=== PATIENT | female | born 1970 | race African-American/Black ===

== ENCOUNTER 2016-08-22 08:19 | Emergency (ER) | payer MEDICARE, MEDICAID ==
[~2016-08-22] VITALS: Ht 175.3 cm; Wt 124.0 kg
[~2016-08-22 08:19] MED LIST: ALBU6.7H INH; BACI500O9 TOPICAL; CARD240C6 PO; CLON0.2T PO; FURO1TAB93 PO; HUMA100I SQ; HYDR50TA94 PO; LEVEMIR SC; LOPE2 PO; LOSA50TA PO; MAGN400 PO; PULM90IN; XANA0.5T PO; ZOFR4TAB3 SL; ZOLP1TAB32 PO
[2016-08-22 08:20] VITALS: BP 254/120; PULSE 122; RESP 24; O2SAT 98
[2016-08-22 08:55] VITALS: BP 196/97; PULSE 98; RESP 20; O2SAT 99
[2016-08-22 08:56] VITALS: O2SAT 99
[2016-08-22 09:06] LABS: AUTOMATED NEUTROPHIL # 11.2 TH/MM3 (1.8-7.7); BASOPHIL % 0.3 % (0.0-2.0); EOSINOPHIL # 0.2 TH/MM3 (0-0.4); EOSINOPHIL % 1.2 % (0.0-4.0); HEMATOCRIT 36.1 % (35.0-46.0); LYMPH % 9.3 % (9.0-44.0); LYMPHOCYTE # 1.2 TH/MM3 (1.0-4.8); MEAN CELL VOLUME 63.4 FL (80.0-100.0); MEAN CORPUSCULAR HEMOGLOBIN 20.7 PG (27.0-34.0); MEAN CORPUSCULAR HGB CONC 32.6 % (32.0-36.0); NEUT % 85.2 % (16.0-70.0); PLATELET COUNT 410 TH/MM3 (150-450); RED CELL DISTRIBUTION WIDTH 16.7 % (11.6-17.2); WHITE BLOOD COUNT 13.1 TH/MM3 (4.0-11.0)
[2016-08-22 09:10] LABS: HEMO FLAGS AUTO DIFF
[2016-08-22 09:19] LABS: ANION GAP 10 MEQ/L (5-15); AST (GOT) 13 U/L (15-37); BICARBONATE 23.1 MEQ/L (21.0-32.0); BLOOD UREA NITROGEN 14 MG/DL (7-18); CHLORIDE 106 MEQ/L (98-107); GLOMERULAR FILTRATION RATE 86 ML/MIN (>89); POTASSIUM 3.5 MEQ/L (3.5-5.1); SODIUM (NA) 139 MEQ/L (136-145)
[2016-08-22 09:23] LABS: ALKALINE PHOSPHATASE 131 U/L (45-117); ALT (GPT) 25 U/L (10-53); TOTAL BILIRUBIN ADULT 0.2 MG/DL (0.2-1.0)
[2016-08-22 09:51] LABS: SCAN/DIFF AUTO DIFF CONFIRMED
--- NOTE | 2016-08-22 10:14 | PD ---
HPI Chief Complaint: Abdominal Pain Time Seen by Provider: 10:04 Travel History International Travel<30 days: No Contact w/Intl Traveler<30days: No Traveled to known affect area: No History of Present Illness HPI The patient is a 46-year-old Jessica female who presents emergency department for nausea, vomiting, diarrhea, and epigastric abdominal pain. The patient states she developed diarrhea last night which she describes as loose, watery, brown, without any visible blood. The patient states she had approximately 12 episodes of diarrhea. The patient then developed crampy epigastric abdominal pain with nausea and the dry heaves. The patient has a history of gastroparesis and states her symptoms with gastroparesis are very similar. The patient also notes a previous history of cholecystectomy. She denies any history pancreatitis. She denies any lower abdominal pain or known history of diverticulitis. The patient denies . The patient denies any dysuria, frequency, or urgency. The patient's symptoms are moderate, not alleviated with Reglan and Zofran at home, and there are no known exacerbating factors. However, she states that her grandson had nausea and vomiting several days ago with abdominal pain, however, did not have diarrhea. The patient's primary physician is Dr. Ray Chambers. [facility] Past Medical History Hx Anticoagulant Therapy: Yes (ASA) Arthritis: Yes Asthma: Yes Anxiety: Yes Depression: Yes Heart Rhythm Problems: No Cardiac Catheterization: No Cardiovascular Problems: Yes (HTN) High Cholesterol: Yes Congestive Heart Failure: No Cerebrovascular Accident: Yes (TIA) Coronary Artery Disease: Yes Diabetes: Yes Dialysis: Yes Diminished Hearing: No GERD: Yes Genitourinary: No Headaches: Yes Hypertension: Yes Immune Disorder: No Psychiatric: No Reproductive: No Respiratory: Yes (ASTHMA) Integumentary: Yes (hydrodenditis) Immunizations Current: Yes Migraines: No Myocardial Infarction: No Seizures: No Sickle Cell Disease: Yes (trait) Sleep Apnea: Yes (uses cpap) : 5 Para: 2 Miscarriage: 3 Past Surgical History Abdominal Surgery: No Body Medical Devices: HYDRODENDRITIS WITH LYMPH NODE DISSECTION Cardiac Surgery: No Section: Yes Cholecystectomy: Yes Coronary Artery Bypass Graft: No Ear Surgery: No Endocrine Surgery: No Eye Surgery: No Genitourinary Surgery: No Gynecologic Surgery: Yes (2 C SECTIONS) Hysterectomy: Yes Neurologic Surgery: No Oral Surgery: No Thoracic Surgery: No Other Surgery: Yes ( HYDRADENITIS) Social History Alcohol Use: Yes (OCC) Tobacco Use: No Substance Use: No Allergies-Medications (Allergen,Severity, Reaction): Coded Allergies: Cleocin (Verified Allergy, Severe, Hives, 08/22/16) Contrast Media (Verified Allergy, Severe, SHORTNESS OF BREATH, 08/22/16) Clindamycin (Verified Allergy, Intermediate, hives, 08/22/16) Augmentin (Verified Allergy, Mild, HIVES, 08/22/16) Diflucan (Verified Allergy, Mild, HIVES, 08/22/16) Levaquin (Verified Allergy, Mild, HIVES, 08/22/16) Percocet (Verified Allergy, Mild, Hallucinations, 08/22/16) Reported Meds & Prescriptions Reported Meds & Active Scripts Active Bacitracin Topical 500 Unit/Gm Oint 1 Applic TOPICAL DAILY Zofran ODT (Ondansetron HCl) 4 Mg Tab 4 Mg SL Q6HR PRN FOR NAUSEA/VOMITING Imodium2 Mg 2 Mg Cap 2 Mg PO Q6HR Zofran ODT (Ondansetron HCl) 4 Mg Tab 4 Mg SL Q6H PRN FOR NAUSEA/VOMITING Reported Pulmicort Flex90 Mcg 90 Mcg Inh DAILY Lasix (Furosemide) 40 Mg Tab 40 Mg PO BID Levemir (Insulin Detemir) Inj 100 SC BID Mag-Ox 400 (Magnesium Oxide) 400 Mg Tab 400 Mg PO DAILY Review of Systems Except as stated in HPI: all other systems reviewed are Neg General / Constitutional: No: Fever HENT: No: Lightheadedness Cardiovascular: No: Chest Pain or Discomfort Respiratory: No: Shortness of Breath Gastrointestinal: Positive: Nausea, Vomiting, Diarrhea, Abdominal Pain Genitourinary: No: Dysuria, Decreased Urinary Output Musculoskeletal: No: Myalgias Neurologic: No: Weakness Physical Exam Narrative GENERAL: Awake, alert, pleasant 46-year-old female who appears her stated age and is in no acute respiratory distress. SKIN: Warm and dry. HEAD: Atraumatic. Normocephalic. EYES: Pupils equal and round. No scleral icterus. No injection or drainage. ENT: No nasal bleeding or discharge. Mucous membranes pink and moist. NECK: Trachea midline. No JVD. CARDIOVASCULAR: Regular rate and rhythm. No murmur appreciated. Heart rate in the 90s. RESPIRATORY: No accessory muscle use. Clear to auscultation. Breath sounds equal bilaterally. GASTROINTESTINAL: Abdomen soft, obese, no rebound tenderness. No tenderness upon palpation of the left or right lower quadrant. Negative McBurney's. No guarding or rigidity noted. MUSCULOSKELETAL: No obvious deformities. No clubbing. No cyanosis. No edema. NEUROLOGICAL: Awake and alert. No obvious cranial nerve deficits. Motor grossly within normal limits. Normal speech. PSYCHIATRIC: Appropriate mood and affect; insight and judgment normal. Data Data Last Documented VS Vital Signs Date Time Temp Pulse Resp B/P Pulse Ox O2 Delivery O2 Flow Rate FiO2 08/22/16 08:56 99 Room Air 08/22/16 08:55 98 20 196/97 Orders Complete Blood Count With Diff (08/22/16 08:31) Comprehensive Metabolic Panel (08/22/16 08:31) Urinalysis - C+S If Indicated (08/22/16 08:31) Ed Urine Pregnancytest Poc (08/22/16 08:31) Iv Access Insert/Monitor (08/22/16 08:31) Oxygen Administration (08/22/16 08:31) Oximetry (08/22/16 08:31) Lipase (08/22/16 08:31) Sodium Chlor 0.9% 1000 Ml Inj (Ns 1000 M (08/22/16 10:15) Morphine Inj (Morphine Inj) (08/22/16 10:15) Prochlorperazine Inj (Compazine Inj) (08/22/16 10:15) Morphine Inj (Morphine Inj) (08/22/16 12:00) Ondansetron Inj (Zofran Inj) (08/22/16 12:00) Sodium Chloride 0.9% Flush (Ns Flush) (08/22/16 12:00) Al-Mag Hy-Si 40-40-4 Mg/Ml Liq (Mag-Al P (08/22/16 12:00) Lidocaine 2% Viscous (Xylocaine 2% Visco (08/22/16 12:00) Labs Laboratory Tests Test 08/22/16 08:44 White Blood Count 13.1 TH/MM3 Red Blood Count 5.70 MIL/MM3 Hemoglobin 11.8 GM/DL Hematocrit 36.1 % Mean Corpuscular Volume 63.4 FL Mean Corpuscular Hemoglobin 20.7 PG Mean Corpuscular Hemoglobin 32.6 % Concent Red Cell Distribution Width 16.7 % Platelet Count 410 TH/MM3 Mean Platelet Volume 7.2 FL Neutrophils (%) (Auto) 85.2 % Lymphocytes (%) (Auto) 9.3 % Monocytes (%) (Auto) 4.0 % Eosinophils (%) (Auto) 1.2 % Basophils (%) (Auto) 0.3 % Neutrophils # (Auto) 11.2 TH/MM3 Lymphocytes # (Auto) 1.2 TH/MM3 Monocytes # (Auto) 0.5 TH/MM3 Eosinophils # (Auto) 0.2 TH/MM3 Basophils # (Auto) 0.0 TH/MM3 CBC Comment AUTO DIFF Differential Comment AUTO DIFF CONFIRMED Sodium Level 139 MEQ/L Potassium Level 3.5 MEQ/L Chloride Level 106 MEQ/L Carbon Dioxide Level 23.1 MEQ/L Anion Gap 10 MEQ/L Blood Urea Nitrogen 14 MG/DL Creatinine 0.86 MG/DL Estimat Glomerular Filtration 86 ML/MIN Rate Random Glucose 208 MG/DL Calcium Level 8.8 MG/DL Total Bilirubin 0.2 MG/DL Aspartate Amino Transf 13 U/L (AST/SGOT) Alanine Aminotransferase 25 U/L (ALT/SGPT) Alkaline Phosphatase 131 U/L Total Protein 8.6 GM/DL Albumin 3.5 GM/DL Lipase 158 U/L [facility] Medical Decision Making Medical Screen Exam Complete: Yes Emergency Medical Condition: Yes Medical Record Reviewed: Yes Interpretation(s) Laboratory Tests Test 08/22/16 08:44 White Blood Count 13.1 TH/MM3 Red Blood Count 5.70 MIL/MM3 Hemoglobin 11.8 GM/DL Hematocrit 36.1 % Mean Corpuscular Volume 63.4 FL Mean Corpuscular Hemoglobin 20.7 PG Mean Corpuscular Hemoglobin 32.6 % Concent Red Cell Distribution Width 16.7 % Platelet Count 410 TH/MM3 Mean Platelet Volume 7.2 FL Neutrophils (%) (Auto) 85.2 % Lymphocytes (%) (Auto) 9.3 % Monocytes (%) (Auto) 4.0 % Eosinophils (%) (Auto) 1.2 % Basophils (%) (Auto) 0.3 % Neutrophils # (Auto) 11.2 TH/MM3 Lymphocytes # (Auto) 1.2 TH/MM3 Monocytes # (Auto) 0.5 TH/MM3 Eosinophils # (Auto) 0.2 TH/MM3 Basophils # (Auto) 0.0 TH/MM3 CBC Comment AUTO DIFF Differential Comment AUTO DIFF CONFIRMED Sodium Level 139 MEQ/L Potassium Level 3.5 MEQ/L Chloride Level 106 MEQ/L Carbon Dioxide Level 23.1 MEQ/L Anion Gap 10 MEQ/L Blood Urea Nitrogen 14 MG/DL Creatinine 0.86 MG/DL Estimat Glomerular Filtration 86 ML/MIN Rate Random Glucose 208 MG/DL Calcium Level 8.8 MG/DL Total Bilirubin 0.2 MG/DL Aspartate Amino Transf 13 U/L (AST/SGOT) Alanine Aminotransferase 25 U/L (ALT/SGPT) Alkaline Phosphatase 131 U/L Total Protein 8.6 GM/DL Albumin 3.5 GM/DL Lipase 158 U/L Differential Diagnosis Differential diagnosis includes gastritis, peptic ulcer disease, gastroenteritis , food poisoning, pancreatitis, gastroparesis, dehydration, pyelonephritis, . Narrative Course IV was established, labs were drawn and sent, and the patient was placed on cardiac telemetry monitoring and continuous pulse oximetry monitoring. The patient was administered morphine, Compazine, and IV fluids. Patient's LFTs and lipase are unremarkable. The patient was reevaluated, still had mild epigastric discomfort, requested a GI cocktail that she's had relief of her symptoms in the past with a GI cocktail. Therefore, GI cocktail was ordered with another dose of morphine and Zofran. The patient was reevaluated at 12:35 PM, her symptoms had resolved. The patient will be placed on Zantac twice a day and is advised to follow-up with her primary physician, Dr. Chambers, and gastroenterology as needed. Diagnosis Primary Impression: Gastritis Qualified Code: K29.70 - Gastritis, presence of bleeding unspecified, unspecified chronicity, unspecified gastritis type Additional Impression: Abdominal pain Qualified Code: R10.13 - Epigastric pain Patient Instructions: General Instructions Additional Instructions: Zantac as previously directed. Continue your your home medications as previously directed. Follow-up with your primary physician, Dr. Chambers. Follow-up with gastroenterology if symptoms persist. Med/Other Pt SpecificInfo: Prescription(s) given Disposition: 01 DISCHARGE HOME Condition: Stable Damion Dick MD Aug 22, 2016 10:14
[2016-08-22] MEDS ORDERED: PROCHLORPERAZINE INJ 10 MG/2 ML VIAL IVS ONE (10:15)
[2016-08-22] MEDS ORDERED: SODIUM CHLOR 0.9% 1000 ML INJ 1,000 ML IV ONE (10:15)
[2016-08-22] MEDS ORDERED: MORPHINE SULFATE 4 MG/ML INJ IV PUSH ONE ×2 (10:15→12:00)
[2016-08-22] MEDS ORDERED: LOSA50TA PO (10:18)
[2016-08-22] MEDS ORDERED: ZOFR4TAB PO (10:18)
[2016-08-22] MEDS ORDERED: ALBUAER3 INH (10:18)
[2016-08-22] MEDS ORDERED: ALPR.5 PO (10:18)
[2016-08-22] MEDS ORDERED: MELO7.5T4 PO (10:18)
[2016-08-22] MEDS ORDERED: MAGN1TAB14 PO (10:18)
[2016-08-22] MEDS ORDERED: DILT-64 PO (10:18)
[2016-08-22] MEDS ORDERED: HYDR50TA94 PO (10:18)
[2016-08-22] MEDS ORDERED: REGL5TAB PO (10:18)
[2016-08-22] MEDS ORDERED: HUMALOG SQ (10:18)
[2016-08-22] MEDS ORDERED: FURO1TAB60 PO (10:18)
[2016-08-22] MEDS ORDERED: MONT10TA2 PO (10:18)
[2016-08-22] MEDS ORDERED: HYDR200T3 PO (10:18)
[2016-08-22] MEDS ORDERED: LEVEMIR SQ (10:18)
[2016-08-22] MEDS ORDERED: AMBI10TA PO (10:18)
[2016-08-22] MEDS ORDERED: POTA-163 PO (10:18)
[2016-08-22] MEDS ORDERED: [UNRECOGNIZED DRUG - CODE] PO (10:18)
[2016-08-22] MEDS ORDERED: CLON0.2T PO (10:18)
[2016-08-22] MEDS ORDERED: RANI300C PO (10:18)
[2016-08-22] MEDS ORDERED: ONDANSETRON HCL 4 MG/2 ML VIAL IVP ONE (12:00)
[2016-08-22] MEDS ORDERED: ALUMINUM/MAGNESIUM/SIMETH 30 ML CUP PO ONE (12:00)
[2016-08-22] MEDS ORDERED: SODIUM CHLORIDE 0.9% FLUSH 5 ML FLUSH IVF PRN (12:00)
[2016-08-22] MEDS ORDERED: LIDOCAINE VISCOUS 2% SOLN 15 ML UDC PO ONE (12:00)
== END 2016-08-22 13:15 | disposition home or self-care (01) ==
LOC: NEPC 08:19
DX: I10 Essential (primary) hypertension (principal); I25.10 Atherosclerotic heart disease of native coronary artery without angina pectoris; Z99.2 Dependence on renal dialysis; E78.00 Pure hypercholesterolemia, unspecified; K29.70 Gastritis, unspecified, without bleeding
CPT/HCPCS: 80053; 83690; 85025; 96374; 96375; 96376; 99284; J0780; J2270; J2405; J7030

== ENCOUNTER 2017-06-20 10:14 | Inpatient (IN) | payer MEDICARE, MEDICAID ==
[~2017-06-20] VITALS: Ht 175.3 cm; Wt 131.3 kg
[2017-06-20] VITALS (11 sets, daily range): BP systolic 172–222; BP diastolic 82–102; PULSE 91–116; RESP 18–22; TEMP 99.2–101.5; O2SAT 95–98
[~2017-06-20 10:14] MED LIST changes: -ALBU6.7H INH; +ALBUAER3 INH; +ALPR.5 PO; +AMBI10TA PO; -BACI500O9 TOPICAL; -CARD240C6 PO; +DILT-64 PO; +FURO1TAB61 PO; -FURO1TAB93 PO; +GLIP5TAB8 PO; -HUMA100I SQ; +HUMALOG SQ; +HYDR200T3 PO; -LEVEMIR SC; +LEVEMIR SQ; -LOPE2 PO; +MAGN1TAB14 PO; -MAGN400 PO; +MEDI; +MELO7.5T4 PO; +MONT10TA2 PO; +POTA-163 PO; -PULM90IN; +RANI300C PO; +REGL5TAB PO; -XANA0.5T PO; +ZOFR4TAB PO; -ZOFR4TAB3 SL; -ZOLP1TAB32 PO; +[UNRECOGNIZED DRUG - CODE] PO
--- NOTE | 2017-06-20 10:23 | PD ---
HPI Chief Complaint: Respiratory Symptoms Time Seen by Provider: 10:23 Travel History International Travel<30 days: No Contact w/Intl Traveler<30days: No Traveled to known affect area: No History of Present Illness HPI 46-year-old female came to the emergency room with history of respiratory distress. Patient says that her daughter was sick last week but she recovered and the patient started getting sick with cough and progressive shortness of breath for past 3 days. She was also hypertensive at her primary care physician 's office. Her blood pressure was about 200 and blood sugar was 455. Her primary care physician sent her to the emergency room to be evaluated. Patient denies any chest pain. Patient says that she has been taking her medications like she supposed to. This morning when she checked her sugar and was little over 200. She took her Levemir only since she had need any breakfast. She says she has been feeling chills but did not take her temperature. Her temperature was 99.5 in triage. Patient was having difficulty talking because of tachypnea. She had 1-2 words per breath. [facility] Past Medical History Narrative Medical List of her past medical, surgical, social and family history is reviewed from the nursing note. Hx Anticoagulant Therapy: Yes (ASA) Arthritis: Yes Asthma: Yes Anxiety: Yes Depression: Yes Heart Rhythm Problems: No Cardiac Catheterization: No Cardiovascular Problems: Yes (HTN) High Cholesterol: Yes Congestive Heart Failure: No Cerebrovascular Accident: Yes (TIA) Coronary Artery Disease: Yes Diabetes: Yes Dialysis: Yes Diminished Hearing: No GERD: Yes Genitourinary: No Headaches: Yes Hypertension: Yes Immune Disorder: No Psychiatric: No Reproductive: No Respiratory: Yes (ASTHMA) Integumentary: Yes (hydrodenditis) Immunizations Current: Yes Migraines: No Myocardial Infarction: No Seizures: No Sickle Cell Disease: Yes (trait) Sleep Apnea: Yes (uses cpap) : 5 Para: 2 Miscarriage: 3 Past Surgical History Abdominal Surgery: No Body Medical Devices: HYDRODENDRITIS WITH LYMPH NODE DISSECTION Cardiac Surgery: No Section: Yes Cholecystectomy: Yes Coronary Artery Bypass Graft: No Ear Surgery: No Endocrine Surgery: No Eye Surgery: No Genitourinary Surgery: No Gynecologic Surgery: Yes Hysterectomy: Yes Neurologic Surgery: No Oral Surgery: No Thoracic Surgery: No Other Surgery: Yes ( HYDRADENITIS) Social History Alcohol Use: Yes (OCC) Tobacco Use: No Substance Use: No Allergies-Medications (Allergen,Severity, Reaction): Coded Allergies: diatrizoate meglumine (Unverified Allergy, Severe, SHORTNESS OF BREATH, ) gadobenic acid (Unverified Allergy, Severe, SHORTNESS OF BREATH, 06/20/17) gadodiamide (Unverified Allergy, Severe, SHORTNESS OF BREATH, 06/20/17) gadoteridol (Unverified Allergy, Severe, SHORTNESS OF BREATH, 06/20/17) iodixanol (Unverified Allergy, Severe, SHORTNESS OF BREATH, 06/20/17) iohexol (Unverified Allergy, Severe, SHORTNESS OF BREATH, 06/20/17) clindamycin (Unverified Allergy, Intermediate, hives, 06/20/17) amoxicillin (Unverified Allergy, Mild, HIVES, 06/20/17) clavulanic acid (Unverified Allergy, Mild, HIVES, 06/20/17) fluconazole (Unverified Allergy, Mild, HIVES, 06/20/17) levofloxacin (Unverified Allergy, Mild, HIVES, 06/20/17) oxycodone (Unverified Allergy, Mild, Hallucinations, 06/20/17) iron (Verified Allergy, Unknown, 06/20/17) Comments List of her allergies reviewed from the nursing note. Reported Meds & Prescriptions Reported Meds & Active Scripts Active Reported Albuterol Neb (Albuterol Sulfate) 2.5 Mg/3 Ml Neb 2.5 Mg NEB QID PRN Glipizide 5 Mg Tab 5 Mg PO BIDAC Take 30 minutes before a meal Lasix (Furosemide) 80 Mg Tab 80 Mg PO DAILY Hydroxychloroquine (Hydroxychloroquine Sulfate) 200 Mg Tab 200 Mg PO BID Takw with food Hydroxyzine HCl 50 Mg Tab 50 Mg PO QID PRN Meloxicam 7.5 Mg Tab 7.5 Mg PO DAILY Potassium Chloride ER (Potassium Chloride) 20 Meq Tab 20 Meq PO BID Ambien (Zolpidem Tartrate) 10 Mg Tab 10 Mg PO HS PRN Ranitidine (Ranitidine HCl) 300 Mg Cap 300 Mg PO BID Magnesium 400 Mg Tab 400 Mg PO DAILY Levemir Inj (Insulin Detemir) 1,000 unit/ 10 ML Vial 200 Units SQ BID Do not mix with any other Insulin. Humalog Inj (Insulin Human Lispro) 1,000 Unit/10 Ml Vial 60 Units SQ BID Diltiazem CD 24 HR 240 Mg Caper 240 Mg PO DAILY Clonidine (Clonidine HCl) 0.2 Mg Tab 0.2 Mg PO BID Singulair (Montelukast Sodium) 10 Mg Tab 10 Mg PO HS Proair Hfa 8.5 GM Inh (Albuterol Sulfate) 90 Mcg/Act Aer 2 Puff INH Q4-6H PRN 108 mcg/actuation Losartan (Losartan Potassium) 50 Mg Tab 50 Mg PO BID Xanax (Alprazolam) 0.5 Mg Tab 0.5 Mg PO BID PRN Reglan (Metoclopramide HCl) 5 Mg Tab 5 Mg PO QID Zofran (Ondansetron HCl) 4 Mg Tab 4 Mg PO DAILY Narrative Medication List of her home medications reviewed from the nursing note. Review of Systems Except as stated in HPI: all other systems reviewed are Neg Respiratory: Positive: Cough, Shortness of Breath Physical Exam Narrative GENERAL: Awake, alert, morbidly obese, significant distress SKIN: Focused skin assessment warm/dry. HEAD: Atraumatic. Normocephalic. EYES: Pupils equal and round. No scleral icterus. No injection or drainage. ENT: No nasal bleeding or discharge. Mucous membranes pink and moist. NECK: Trachea midline. No JVD. CARDIOVASCULAR: Regular rate and rhythm. No murmur appreciated. RESPIRATORY: No accessory muscle use. Tachypneic. Clear to auscultation. Breath sounds equal bilaterally. GASTROINTESTINAL: Abdomen soft, non-tender, nondistended. Hepatic and splenic margins not palpable. MUSCULOSKELETAL: No obvious deformities. No clubbing. No cyanosis. No edema. NEUROLOGICAL: Awake and alert. No obvious cranial nerve deficits. Motor grossly within normal limits. Normal speech. PSYCHIATRIC: Appropriate mood and affect; insight and judgment normal. Data Data Last Documented VS Vital Signs Date Time Temp Pulse Resp B/P (MAP) Pulse Ox O2 Delivery O2 Flow Rate FiO2 06/20/17 13:43 97 21 06/20/17 13:43 99 22 203/92 (129) 06/20/17 10:59 Room Air 06/20/17 10:15 99.4 Orders Orders Complete Blood Count With Diff (06/20/17 10:26) Comprehensive Metabolic Panel (06/20/17 10:26) Lactic Acid Sepsis Protocol (06/20/17 10:26) Urinalysis - C+S If Indicated (06/20/17 10:26) Blood Culture (06/20/17 10:26) Chest, Single Ap (06/20/17 10:26) Blood Glucose (06/20/17 10:26) Ecg Monitoring (06/20/17 10:26) Iv Access Insert/Monitor (06/20/17 10:26) Oximetry (06/20/17 10:26) Oxygen Administration (06/20/17 10:26) Sodium Chlor 0.9% 1000 Ml Inj (Ns 1000 M (06/20/17 10:26) Sodium Chlor 0.9% 1000 Ml Inj (Ns 1000 M (06/20/17 10:26) Sodium Chlor 0.9% 1000 Ml Inj (Ns 1000 M (06/20/17 10:26) Sodium Chlor 0.9% 1000 Ml Inj (Ns 1000 M (06/20/17 10:26) Blood Gas Venous (Vbg) (06/20/17 10:39) Aztreonam Inj (Azactam Inj) (06/20/17 11:45) Vancomycin Inj (Vancomycin Inj) (06/20/17 11:45) Electrocardiogram (06/20/17 10:36) Insulin Human Regular Inj (Novolin R Inj (06/20/17 13:45) Potassium Chlor 20 Meq Premix (Kcl 20 Me (06/20/17 13:45) Potassium Chloride (Kcl) (06/20/17 13:45) Labetalol Inj (Trandate Inj) (06/20/17 13:45) Admit Order (Ed Use Only) (06/20/17 13:44) Beta Hydroxybutyrate (Acetone) (06/20/17 13:44) Labs Laboratory Tests Test 06/20/17 10:39 06/20/17 10:40 06/20/17 10:45 Blood Gas Puncture Site IV Blood Gas Patient Temperature 98.6 Venous Blood pH 7.42 Venous Blood Partial Pressure CO2 35 mmHg Venous Blood Partial Pressure O2 31 mmHg Venous Blood HCO3 23 mmol/L Venous Blood Oxygen Saturation 54 % Venous Blood Oxygen Content 7.1 Vol % Venous Blood Base Excess -1.2 mmol/L Oxygen Delivery Device ROOM AIR Blood Gas Inspired Oxygen 21 % Urine Color LIGHT-YELLOW Urine Turbidity CLEAR Urine pH 6.5 Urine Specific [place] 1.009 Urine Protein 30 mg/dL Urine Glucose (UA) 1000 mg/dL Urine Ketones TRACE mg/dL Urine Occult Blood NEG Urine Nitrite NEG Urine Bilirubin NEG Urine Urobilinogen LESS THAN 2.0 MG/DL Urine Leukocyte Esterase NEG Urine RBC 1 /hpf Urine WBC 1 /hpf Urine Squamous Epithelial Cells <1 /hpf Urine Mucus FEW /lpf Microscopic Urinalysis Comment CATH-CULT NOT IND White Blood Count 13.3 TH/MM3 Red Blood Count 4.93 MIL/MM3 Hemoglobin 9.3 GM/DL Hematocrit 29.3 % Mean Corpuscular Volume 59.4 FL Mean Corpuscular Hemoglobin 18.8 PG Mean Corpuscular Hemoglobin Concent 31.6 % Red Cell Distribution Width 18.6 % Platelet Count 476 TH/MM3 Mean Platelet Volume 6.9 FL Neutrophils (%) (Auto) 83.0 % Lymphocytes (%) (Auto) 10.9 % Monocytes (%) (Auto) 4.7 % Eosinophils (%) (Auto) 1.1 % Basophils (%) (Auto) 0.3 % Neutrophils # (Auto) 11.1 TH/MM3 Lymphocytes # (Auto) 1.4 TH/MM3 Monocytes # (Auto) 0.6 TH/MM3 Eosinophils # (Auto) 0.2 TH/MM3 Basophils # (Auto) 0.0 TH/MM3 CBC Comment DIFF FINAL Differential Comment Blood Urea Nitrogen 8 MG/DL Creatinine 0.89 MG/DL Random Glucose 289 MG/DL Total Protein 8.7 GM/DL Albumin 3.1 GM/DL Calcium Level 8.8 MG/DL Alkaline Phosphatase 129 U/L Aspartate Amino Transf (AST/SGOT) 18 U/L Alanine Aminotransferase (ALT/SGPT) 17 U/L Total Bilirubin 0.3 MG/DL Sodium Level 136 MEQ/L Potassium Level 3.0 MEQ/L Chloride Level 101 MEQ/L Carbon Dioxide Level 21.4 MEQ/L Anion Gap 14 MEQ/L Estimat Glomerular Filtration Rate 83 ML/MIN Lactic Acid Level 4.1 mmol/L B-Hydroxybutyrate 0.12 MMOL/L [facility] Medical Decision Making Medical Screen Exam Complete: Yes Emergency Medical Condition: Yes Medical Record Reviewed: Yes Interpretation(s) Twelve-lead EKG was reviewed by me. Normal sinus rhythm, normal axis, nonspecific ST-T wave changes, tachypnea. Heart rate of 101 bpm. Differential Diagnosis Sepsis, pneumonia, COPD exacerbation Narrative Course 1 PM blood test results are back. Patient has hyperglycemia. Lactic acid was elevated. I have given her antibiotic and fluid as per sepsis protocol. She has been given insulin 10 units. Patient has been admitted to the resident service. Chest x-ray was within normal limits. Critical Care Narrative Aggregate critical care time was 30 minutes. Time to perform other separately billable procedures was not included in the critical care time. My time did not include minutes spent treating any other patients simultaneously or on activities that did not directly contribute to the patient's treatment. The services I provided to this patient were to treat and/or prevent clinically significant deterioration that could result in: Sepsis, sepsis. I provided critical care services requiring my management, as noted below: Chart data review, documentation time, medication orders and management, vital sign assessments/reviewing monitor data, ordering and reviewing lab tests, ordering and interpreting/reviewing x-rays and diagnostic studies, care of the patient and discussion of the patient with the admitting physicians. Procedures EKG Prior to Arrival: No Diagnosis Primary Impression: Sepsis Qualified Codes: A41.9 - Sepsis, unspecified organism Additional Impressions: Lactic acidosis Hyperglycemia Admitting Information Admitting Physician Requests: Halima Villa MD Jun 20, 2017 10:23
[2017-06-20] MEDS ORDERED: SODIUM CHLOR 0.9% 1000 ML INJ 900 ML IV ONE (10:26)
[2017-06-20] MEDS ORDERED: SODIUM CHLOR 0.9% 1000 ML INJ 1,000 ML IV ONE ×3 (10:26)
[2017-06-20] MEDS ORDERED: ALBU0.08 NEB (11:08)
[2017-06-20 11:11] LABS: AUTOMATED NEUTROPHIL # 11.1 TH/MM3 (1.8-7.7); BASOPHIL % 0.3 % (0.0-2.0); EOSINOPHIL # 0.2 TH/MM3 (0-0.4); EOSINOPHIL % 1.1 % (0.0-4.0); HEMATOCRIT 29.3 % (35.0-46.0); HEMOGLOBIN 9.3 GM/DL (11.6-15.3); LYMPH % 10.9 % (9.0-44.0); LYMPHOCYTE # 1.4 TH/MM3 (1.0-4.8); MEAN CELL VOLUME 59.4 FL (80.0-100.0); MEAN CORPUSCULAR HEMOGLOBIN 18.8 PG (27.0-34.0); MEAN CORPUSCULAR HGB CONC 31.6 % (32.0-36.0); MEAN PLATELET VOLUME 6.9 FL (7.0-11.0); MONO % 4.7 % (0.0-8.0); MONOCYTE # 0.6 TH/MM3 (0-0.9); PLATELET COUNT 476 TH/MM3 (150-450); RED BLOOD COUNT 4.93 MIL/MM3 (4.00-5.30); RED CELL DISTRIBUTION WIDTH 18.6 % (11.6-17.2); WHITE BLOOD COUNT 13.3 TH/MM3 (4.0-11.0)
[2017-06-20 11:14] LABS: BILIRUBIN, URINE NEG (NEG); BLOOD, URINE NEG (NEG); GLUCOSE,URINE 1000 mg/dL (NEG); KETONE, URINE TRACE mg/dL (NEG); MUCUS URINE FEW /lpf (OCC); NITRITE,URINE NEG (NEG); PH, URINE 6.5 (5.0-8.5); SQUAMOUS EPITHELIAL CELL URINE <1 /hpf (0-5); URINE COLOR LIGHT-YELLOW (YELLW/STRAW); URINE LEUKOCYTE ESTERASE NEG (NEG)
--- NOTE | 2017-06-20 11:22 | RADRPT ---
EXAM DATE/TIME: 06/20/2017 11:09 [place] COMPARISON: No previous studies available for comparison. INDICATIONS : Short of breath since last night. MEDICAL HISTORY : Hypertension. Diabetes mellitus type II. SURGICAL HISTORY : None. ENCOUNTER: Initial ACUITY: 1 day PAIN SCORE: 0/10 LOCATION: Bilateral chest FINDINGS: A single view of the chest demonstrates the lungs to be symmetrically aerated without evidence of mas s, infiltrate or effusion. The heart size is enlarged.. Osseous structures are intact. CONCLUSION: 1. No acute intrathoracic disease. 2. Compensated cardiomegaly. Jose Soares MD on June 20, 2017 at 11:20 Board Certified Radiologist. This report was verified electronically.
[2017-06-20 11:31] LABS: ALBUMIN 3.1 GM/DL (3.4-5.0); ALT (GPT) 17 U/L (10-53); AST (GOT) 18 U/L (15-37); BICARBONATE 21.4 MEQ/L (21.0-32.0); BLOOD UREA NITROGEN 8 MG/DL (7-18); CALCIUM 8.8 MG/DL (8.5-10.1); CHLORIDE 101 MEQ/L (98-107); CREATININE 0.89 MG/DL (0.50-1.00); GLOMERULAR FILTRATION RATE 83 ML/MIN (>89); GLUCOSE,RANDOM 289 MG/DL (74-106); SODIUM (NA) 136 MEQ/L (136-145)
[2017-06-20 11:32] LABS: LACTIC ACID SEPSIS PROTOCOL 4.1 mmol/L (0.4-2.0)
[2017-06-20 11:34] LABS: ALKALINE PHOSPHATASE 129 U/L (45-117); TOTAL BILIRUBIN ADULT 0.3 MG/DL (0.2-1.0); TOTAL PROTEIN 8.7 GM/DL (6.4-8.2)
[2017-06-20] MEDS ORDERED: AZTREONAM INJ 2,000 MG in SODIUM CHLORIDE 0.9% INJ 100 ML IV ONE (11:45)
[2017-06-20] MEDS ORDERED: VANCOMYCIN INJ 1,000 MG in SODIUM CHLOR 0.9% 250 ML INJ 250 ML IV ONE (11:45)
[2017-06-20] MEDS ORDERED: POTASSIUM CHLORIDE 20 MEQ CONTROLLED RELEASE TAB PO ONE (13:45)
[2017-06-20] MEDS ORDERED: INSULIN HUMAN REGULAR 1,000 UNITS/10 ML VIAL IV PUSH ONE (13:45)
[2017-06-20] MEDS ORDERED: POTASSIUM CHLOR 20 MEQ PREMIX 100 ML IV ONE (13:45)
[2017-06-20] MEDS ORDERED: LABETALOL HCL 100 MG/20 ML VIAL IV PUSH ONE (13:45)
[2017-06-20] MEDS ORDERED: hydrOXYzine HCL 50 MG TAB PO PRN (14:15)
[2017-06-20] MEDS ORDERED: SODIUM CHLORIDE 0.9% FLUSH 10 ML FLUSH IV FLUSH PRN (14:15)
[2017-06-20] MEDS: SODIUM CHLORIDE 0.9% FLUSH 10 ML FLUSH IV FLUSH SCH ×2 (14:15→21:12)
--- NOTE | 2017-06-20 14:29 | HHI.HP ---
HPI Service Family Medicine Primary Care Physician Chico Singh MD Admission Diagnosis sepsis, hyperglycemia, hypertensive crisis, respiratory distress Diagnoses: International Travel<30 Days: No Contact w/Intl Traveler<30days: No Known Affected Area: No History of Present Illness HPI: (after performing H&P, Dr. Singh was called and he would like to admit Mrs. Orozco to the hospital, we will transfer care to her PCP). Daughter was sick last week last week (works in [employer]) - she had a cough/cold. On Saturday she woke up with a sore throat. It was a burning pain and "on fire". Saturday her throat was not hurting as bad. She thought that this was a sign that she was getting better. Yesterday at 2-3 pm this throat pain resolved completely. Then at 8 pm, she started coughing. She tried using cough drops but nothing helped. She used her albuterol inhaler, and that did not help. Then she waited until 1 AM this morning and used a albuterol breathing treatment, then she was able to sleep until 6 am. At 6 am she gave herself another treatment. Each time, the breathing treatments made it easier to catch her breath, stop coughing, and get comfortable. She had a scheduled appointment with her PCP Dr. Singh for her diabetic control (that has been high). At 10 am she got another breathing treatment and a clonidine 0.2 mg. Her BG was 455 on fingerstick. Her PCP sent her to ED. Her BP was 205/93. While at the doctors office she was still SOB, that was about the same as the night before. Laying down makes her cough, and sitting up is more comfortable because she is not coughing as much. No recent prolonged immobilization. No surgeries recently. Never had a blood clot. Never treated for cancer. No swelling in one leg or another that is new. No chest pain and doesn't feel her heart beating abnormally. Associated with the cough is sputum but she does not spit it out. No fevers and chills. Last week she reports that "water got stuck down in my windpipe." She had severe coughing for 30 minutes. She got a new CPAP machine last week. She did have the flu shot this year. Breathing right now is at 90% of her baseline but cough is still bothering her. Past Family Social History Past Medical History T2DM HTN Hydradenitis TIA in late 20s GERD Hypokalemia Hypomagnesium Connective Tissue Disease n.o.s. Past Surgical History Cholecystectomy in 1992 hidradenitis - breast surgery November 14, 1999 Allergies: Coded Allergies: diatrizoate meglumine (Unverified Allergy, Severe, SHORTNESS OF BREATH, ) gadobenic acid (Unverified Allergy, Severe, SHORTNESS OF BREATH, 06/20/17) gadodiamide (Unverified Allergy, Severe, SHORTNESS OF BREATH, 06/20/17) gadoteridol (Unverified Allergy, Severe, SHORTNESS OF BREATH, 06/20/17) iodixanol (Unverified Allergy, Severe, SHORTNESS OF BREATH, 06/20/17) iohexol (Unverified Allergy, Severe, SHORTNESS OF BREATH, 06/20/17) clindamycin (Unverified Allergy, Intermediate, hives, 06/20/17) amoxicillin (Unverified Allergy, Mild, HIVES, 06/20/17) clavulanic acid (Unverified Allergy, Mild, HIVES, 06/20/17) fluconazole (Unverified Allergy, Mild, HIVES, 06/20/17) levofloxacin (Unverified Allergy, Mild, HIVES, 06/20/17) oxycodone (Unverified Allergy, Mild, Hallucinations, 06/20/17) iron (Verified Allergy, Unknown, 06/20/17) Family History Mother - history unknown, diabetes Father - unknown, Hypertension Siblings - unknown Social History Adopted when she was 6 Originally born in [facility] Never a smoker Occasional EtOH use (3 x a year) No recreational drugs AX: As above. Physical Exam Vital Signs Vital Signs Date Time Temp Pulse Resp B/P (MAP) Pulse Ox O2 Delivery O2 Flow Rate FiO2 06/20/17 13:43 99 22 203/92 (129) 97 06/20/17 12:04 110 22 216/86 (129) 96 06/20/17 10:59 99 Room Air 06/20/17 10:34 Room Air 06/20/17 10:15 99.4 113 18 222/102 (142) 96 Physical Exam GENERAL: This is a well-nourished, well-developed patient, in no apparent distress. SKIN: No rashes, ecchymoses or lesions. Cool and dry. HEAD: Atraumatic. Normocephalic. No temporal or scalp tenderness. EYES: Pupils equal round and reactive. Extraocular motions intact. No scleral icterus. No injection or drainage. ENT: Nose without bleeding, purulent drainage or septal hematoma. Throat without erythema, tonsillar hypertrophy or exudate. Uvula midline. Airway patent. NECK: Trachea midline. No JVD or lymphadenopathy. Supple, nontender, no meningeal signs. CARDIOVASCULAR: Regular rate and rhythm without murmurs, gallops, or rubs. RESPIRATORY: Clear to auscultation. Breath sounds equal bilaterally. No wheezes , rales, or rhonchi. GASTROINTESTINAL: Abdomen soft, non-tender, nondistended. No hepato-splenomegaly , or palpable masses. No guarding. MUSCULOSKELETAL: Extremities without clubbing, cyanosis, or edema. No joint tenderness, effusion, or edema noted. No calf tenderness. Negative Homans sign bilaterally. NEUROLOGICAL: Awake and alert. Cranial nerves II through XII intact. Motor and sensory grossly within normal limits. Five out of 5 muscle strength in all muscle groups. Normal speech. Laboratory Laboratory Tests Test 06/20/17 10:39 06/20/17 10:40 06/20/17 10:45 Blood Gas Puncture Site IV Blood Gas Patient Temperature 98.6 Venous Blood pH 7.42 Venous Blood Partial Pressure CO2 35 Venous Blood Partial Pressure O2 31 Venous Blood HCO3 23 Venous Blood Oxygen Saturation 54 Venous Blood Oxygen Content 7.1 Venous Blood Base Excess -1.2 Oxygen Delivery Device ROOM AIR Blood Gas Inspired Oxygen 21 Urine Color LIGHT-YELLOW Urine Turbidity CLEAR Urine pH 6.5 Urine Specific [place] 1.009 Urine Protein 30 Urine Glucose (UA) 1000 Urine Ketones TRACE Urine Occult Blood NEG Urine Nitrite NEG Urine Bilirubin NEG Urine Urobilinogen LESS THAN 2.0 Urine Leukocyte Esterase NEG Urine RBC 1 Urine WBC 1 Urine Squamous Epithelial Cells <1 Urine Mucus FEW Microscopic Urinalysis Comment CATH-CULT NOT IND White Blood Count 13.3 Red Blood Count 4.93 Hemoglobin 9.3 Hematocrit 29.3 Mean Corpuscular Volume 59.4 Mean Corpuscular Hemoglobin 18.8 Mean Corpuscular Hemoglobin Concent 31.6 Red Cell Distribution Width 18.6 Platelet Count 476 Mean Platelet Volume 6.9 Neutrophils (%) (Auto) 83.0 Lymphocytes (%) (Auto) 10.9 Monocytes (%) (Auto) 4.7 Eosinophils (%) (Auto) 1.1 Basophils (%) (Auto) 0.3 Neutrophils # (Auto) 11.1 Lymphocytes # (Auto) 1.4 Monocytes # (Auto) 0.6 Eosinophils # (Auto) 0.2 Basophils # (Auto) 0.0 CBC Comment DIFF FINAL Differential Comment Blood Urea Nitrogen 8 Creatinine 0.89 Random Glucose 289 Total Protein 8.7 Albumin 3.1 Calcium Level 8.8 Alkaline Phosphatase 129 Aspartate Amino Transf (AST/SGOT) 18 Alanine Aminotransferase (ALT/SGPT) 17 Total Bilirubin 0.3 Sodium Level 136 Potassium Level 3.0 Chloride Level 101 Carbon Dioxide Level 21.4 Anion Gap 14 Estimat Glomerular Filtration Rate 83 Lactic Acid Level 4.1 Date/Time Source Procedure Growth Status 06/20/17 10:45 Blood Peripheral Aerobic Blood Culture Pending Received 06/20/17 10:45 Blood Peripheral Anaerobic Blood Culture Pending Received Result Diagram: 06/20/17 1045 06/20/17 1045 Caprini VTE Risk Assessment Caprini VTE Risk Assessment: No/Low Risk (score <= 1) Caprini Risk Assessment Model Point Value = 1 Point Value = 2 Point Value = 3 Point Value = 5 Age 41-60 Minor surgery BMI > 25 kg/m2 Swollen legs Varicose veins or History of unexplained or recurrent spontaneous Oral contraceptives or hormone replacement Sepsis (< 1 month) Serious lung disease, including pneumonia (< 1 month) Abnormal pulmonary function Acute myocardial infarction Congestive heart failure (< 1 month) History of inflammatory bowel disease Medical patient at bed rest Age 61-74 Arthroscopic surgery Major open surgery (> 45 min) Laparoscopic surgery (> 45 min) Malignancy Confined to bed (> 72 hours) Immobilizing plaster cast Central venous access Age >= 75 History of VTE Family history of VTE Factor V Leiden Prothrombin [id number] Lupus anticoagulant Anticardiolipin antibodies Elevated serum homocysteine Heparin-induced thrombocytopenia Other congenital or acquired thrombophilia Stroke (< 1 month) Elective arthroplasty Hip, pelvis, or leg fracture Acute spinal cord injury (< 1 month) Prophylaxis Regimen Total Risk Factor Score Risk Level Prophylaxis Regimen 0-1 Low Early ambulation 2 Moderate Order ONE of the following: *Sequential Compression Device (SCD) *Heparin 5000 units SQ BID 3-4 Higher Order ONE of the following medications: *Heparin 5000 units SQ TID *Enoxaparin/Lovenox 40 mg SQ daily (WT < 150 kg, CrCl > 30 mL/min) *Enoxaparin/Lovenox 30 mg SQ daily (WT < 150 kg, CrCl > 10-29 mL/min) *Enoxaparin/Lovenox 30 mg SQ BID (WT < 150 kg, CrCl > 30 mL/min) AND/OR *Sequential Compression Device (SCD) 5 or more Highest Order ONE of the following medications: *Heparin 5000 units SQ TID (Preferred with Epidurals) *Enoxaparin/Lovenox 40 mg SQ daily (WT < 150 kg, CrCl > 30 mL/min) *Enoxaparin/Lovenox 30 mg SQ daily (WT < 150 kg, CrCl > 10-29 mL/min) *Enoxaparin/Lovenox 30 mg SQ BID (WT < 150 kg, CrCl > 30 mL/min) AND *Sequential Compression Device (SCD) Physician Certification 2 Midnight Certification Type: Admission for Inpatient Services Order for Inpatient Services The services are ordered in accordance with Medicare regulations or non- Medicare payer requirements, as applicable. In the case of services not specified as inpatient-only, they are appropriately provided as inpatient services in accordance with the 2-midnight benchmark. Estimated LOS (days): 2 2 days is the estimated time the patient will need to remain in the hospital, assuming treatment plan goals are met and no additional complications. Post-Hospital Plan: Home Emery Cao MD, R3 Jun 20, 2017 14:29
[2017-06-20] MEDS ORDERED: POTASSIUM CHLORIDE 10 MEQ CONTROLLED RELEASE TAB PO ONE (15:30)
[2017-06-20] MEDS ORDERED: DEXTROSE 50% IN WATER 50 ML VIAL(D50) IV PUSH PRN (15:30)
[2017-06-20] MEDS ORDERED: GLUCAGON 1 MG/ML VIAL OTHER PRN (15:30)
[2017-06-20] MEDS: INSULIN ASPART SUPPLEMENTAL SCALE SQ SCH ×2 (17:00→21:12)
[2017-06-20] MEDS: AZITHROMYCIN 250 MG TAB PO SCH (18:50)
[2017-06-20] MEDS: RESP: ALBUTEROL 2.5 MG/IPRATROPIUM 0.5 MG NEB (SCH) NEB (20:33)
--- NOTE | 2017-06-20 21:04 | MB ---
cc: IRINA JAVED MD DATE OF CONSULTATION 06/20/[address] Singh. REASON FOR CONSULTATION Possible sepsis. HISTORY OF PRESENT ILLNESS This is a 46-year-old white female who presented to the emergency department earlier today with respiratory symptoms. The patient developed soreness of the throat 3 days ago and she said that she had burning of the throat and then that went away and she started developing cough and shortness of breath. She presented to the emergency department and she was noted to have high blood pressure and also elevated blood sugar. The temperature was 99.4 degrees and blood pressure was 203/92. She also had elevated lactic acid level of 4.1 and elevated white cell count of 13.3. The patient states that her daughter was sick with a head cold. 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 The daughter describes that she has mostly sneezing and postnasal drip. The patient has been exposed to her daughter. The daughter said she has been sick for about a week and is now starting to get over the illness which the daughter is experiencing. The patient is currently sitting up in a chair. She feels nasal stuffiness and congested and is coughing. She is awake and alert, otherwise. She has no fever or chills. She states that she has been bringing up clear phlegm. A chest x-ray was performed and it shows no acute infiltrates. The patient reports that she feels more comfortable sitting up because when she lays down she has more coughing. The patient uses C-PAP at home. She states that she gave herself a breathing treatment last night and that she was able to sleep for about 5 hours after the breathing treatment. PAST MEDICAL HISTORY Hypertension, type 2 diabetes mellitus. Hidradenitis. History of TIA, gastroesophageal reflux disease, cholecystectomy. History of connective tissue disease, unknown type. ALLERGIES AMOXICILLIN, CLAVULANIC ACID, CLINDAMYCIN, FLUCONAZOLE, LEVAQUIN, OXYCODONE, GADODIAMIDE, GADOBENIC, DIATRIZOATE MEGLUMINE, IODIXANOL, IOHEXOL, IRON. MEDICATIONS 1. Cardizem. 2. Catapres. 3. Cozaar. 4. Insulin. 5. Xanax. The patient has received a dose of vancomycin and a dose of aztreonam earlier today. SOCIAL HISTORY No tobacco. Rare alcohol use. No illicit drugs. FAMILY HISTORY Noncontributory. REVIEW OF SYSTEMS CONSTITUTIONAL: No fever or chills. HEAD, EARS, NOSE AND THROAT: No visual blurring or diplopia. No nasal bleeding or discharge. Positive for soreness of the throat. Denies difficulty swallowing. No neck pain or neck swelling. CARDIOVASCULAR: Denies palpitation or chest pain. RESPIRATORY: Positive for cough and shortness of breath. GASTROINTESTINAL: Denies nausea or vomiting, abdominal pain or diarrhea. GENITOURINARY: Denies urgency, frequency or dysuria. HEMATOPOIETIC: Denies muscle or joint aches or pains. ENDOCRINE: Denies polyuria or polydipsia. INTEGUMENTARY: Denies skin rash or itching. HEMATOPOIETIC: Denies easy bruising. NEUROLOGIC: Denies problems with coordination. PSYCHIATRIC: Denies depression. PHYSICAL EXAMINATION GENERAL: The patient is in no acute distress. She is a well-developed moderately obese female. VITAL SIGNS: Include temperature of 99.2, blood pressure 172/82, heart rate 101, respirations 20. HEENT: Head is atraumatic. Extraocular movements grossly intact, pupils reactive to light. No icterus. Oropharynx moist mucosa without lesions. No thrush. NECK: Supple without adenopathy. LUNGS: Markedly diminished breath sounds, worse on the left and no rhonchi audible. HEART: Regular S1-S2. ABDOMEN: Bowel sounds present, soft, nontender. RECTAL: Not performed. EXTREMITIES: No clubbing or cyanosis or edema. The patient has chronic dry skin at the tibias and a tiny ulceration at the right lateral tibia ___ without drainage. SKIN: No diffuse rash. NEUROLOGIC: No gross focal findings. PSYCHIATRIC: The patient calm and cooperative. LABORATORY DATA WBC 13.3, platelets 476, 83% neutrophils, hemoglobin 9.3, creatinine 0.89, BUN 8, sodium 136, AST 18, ALT 17, alk phos 129. Urinalysis unremarkable. Blood culture pending. IMPRESSION 1. Patient with respiratory distress and cough and leukocytosis. Likely she has acute bronchitis. Chest x-ray is unremarkable. 2. Lactic acidosis. Unclear whether this is related to sepsis. 3. Hypoxemia. RECOMMENDATIONS 1. Obtain sputum culture. 2. Treatment with azithromycin. 3. Follow blood culture. 4. Follow sputum culture. 5. Follow clinical status. Thank you for this consultation. I will follow the patient's progress with you and make further recommendations if necessary. Irina Javed MD FD/ROXANNA /5:38 PM /8:36 PM
[2017-06-20] MEDS: cloNIDine HCL 0.2 MG TAB PO SCH (21:10)
[2017-06-20] MEDS: LOSARTAN 50 MG TAB PO SCH (21:10)
[2017-06-21] VITALS (9 sets, daily range): BP systolic 149–187; BP diastolic 80–98; PULSE 86–95; RESP 18–20; TEMP 98–99.6; O2SAT 96–98
--- NOTE | 2017-06-21 06:42 | MB ---
cc: CAROLYNE MAYER DATE OF CONSULTATION 06/20/2017 REASON FOR CONSULTATION Respiratory distress and possible pneumonia. PRESENT ILLNESS This is a 46-year-old obese lady who was brought to the emergency room with respiratory distress, was recently treated for a bout of bronchitis. The patient apparently has been short of breath for the past two to three days which became worse today. Upon arrival in the doctor's office she was noted to be hypertensive and had a very high blood sugar of over 450 and she was thus sent to the emergency room for further care and admission. Upon arrival a chest x-ray was done which showed no active infiltrates. The patient's O2 sats were 95% on room air. She was then admitted with a possible diagnosis of pneumonia and hyperglycemia. The patient has been stable over the past three hours and she is able to converse and denies any weakness of her extremities. She denies chest pains or abdominal pains and no significant leg swelling. PAST HISTORY 1. History of lymph node dissection for hidradenitis. 2. in the past. 3. Cholecystectomy. 4. History of gynecologic surgery. 5. Hypertension. 6. Gastroesophageal reflux. 7. History of asthma as well as obstructive sleep apnea for which she is on a C-PAP mask. 8. Diabetes mellitus type 2. 9. History of sickle cell trait. HABITS The patient does not smoke. Alcohol use occasional and no history of illicit drug use. ALLERGIES DITRIAZATE. IOHEXOL. CLINDAMYCIN. AMOXICILLIN. CLAVULANIC ACID. LEVAQUIN. OXYCODONE. IRON. FAMILY HISTORY Noncontributory. MED LIST 1. Glipizide 5 mg b.i.d. 2. Lasix 80 mg daily. 3. Plaquenil 200 mg b.i.d. 4. Hydroxyzine 50 mg p.r.n. 5. Meloxicam 7.5 mg a day. 6. Zantac 300 mg daily. 7. Levemir injection 200 units subcu b.i.d. 8. Humalog insulin Lispro 60 units b.i.d. subcu. 9. Clonidine 0.2 mg b.i.d.. 10. Singulair 10 mg a day. 11. Losartan 50 mg b.i.d. 12. Xanax 0.5 mg b.i.d. 13. Reglan t.i.d. p.r.n. 5 mg. 14. Nebulized albuterol q.i.d. p.r.n. SYSTEMS REVIEW This patient is overweight. She has joint pains. She has leg swelling. She has epigastric distress and reflux. She has had urinary frequency. Denies skin lesions. She does have joint pains and denies any skin rash. She has some anxiety attacks. The other system review negative and as in presenting complaint. PHYSICAL EXAMINATION GENERAL: This is a middle-aged, very obese lady who is alert, anxious and in no acute distress. VITAL SIGNS: Blood pressure 142/80, pulse is 85, respirations 22, temperature 98.2. HEENT: Head normocephalic. Pupils are reactive and equal. Tongue moist. Throat was clear. Nasal mucosa is clear. NECK: Supple. No venous distension. Trachea midline. CHEST: Decreased breath sounds at the bases with occasional wheezes anteriorly. No crackles. HEART: The heart sounds are regular S1 and S2 with no murmur. No S3. ABDOMEN: Soft, nontender. No organomegaly. Bowel sounds are active. EXTREMITIES: Mild varicosities and decreased peripheral pulses. 1+ reflexes with no gross motor deficits. SKIN: Skin was dry and scaly. No definite lesions noted. IMPRESSION 1. Obstructive sleep apnea syndrome. 2. Asthma and chronic bronchitis. 3. Hypertension. 4. Diabetes mellitus. 5. Sickle cell trait. 6. Obesity. PLAN 1. The patient has been placed on nebulized DuoNeb solution q.i.d. and O2 2 liters p.r.n. 2. She will be monitored for signs of sepsis and lactic acid levels have been ordered to be repeated. 3. Blood sugar has improved after insulin administration and further blood sugar sampling is pending. 4. We will also add Symbicort 160/4.5 two puffs twice daily and use Solu-Medrol 40 mg twice daily. 5. Follow-up CBC and BMP to be done in the a.m. 6. C-PAP mask to be used nightly which she has used in the past. 7. Blood gas study to be done in the a.m. as well. Thank you Dr. Gates for this consultation. MD CHIN Eric/SSB /11:41 PM /6:25 AM
[2017-06-21 06:55] LABS: AUTOMATED NEUTROPHIL # 7.7 TH/MM3 (1.8-7.7); BASOPHIL % 0.2 % (0.0-2.0); EOSINOPHIL # 0.3 TH/MM3 (0-0.4); EOSINOPHIL % 2.5 % (0.0-4.0); HEMATOCRIT 26.4 % (35.0-46.0); HEMOGLOBIN 8.5 GM/DL (11.6-15.3); LYMPH % 16.4 % (9.0-44.0); LYMPHOCYTE # 1.7 TH/MM3 (1.0-4.8); MEAN CELL VOLUME 59.2 FL (80.0-100.0); MEAN CORPUSCULAR HGB CONC 32.1 % (32.0-36.0); MEAN PLATELET VOLUME 6.8 FL (7.0-11.0); MONOCYTE # 0.7 TH/MM3 (0-0.9); NEUT % 73.9 % (16.0-70.0); PLATELET COUNT 435 TH/MM3 (150-450); RED BLOOD COUNT 4.46 MIL/MM3 (4.00-5.30); RED CELL DISTRIBUTION WIDTH 19.2 % (11.6-17.2); WHITE BLOOD COUNT 10.4 TH/MM3 (4.0-11.0)
[2017-06-21 07:28] LABS: ALBUMIN 2.7 GM/DL (3.4-5.0); ALKALINE PHOSPHATASE 121 U/L (45-117); ALT (GPT) 15 U/L (10-53); AST (GOT) 19 U/L (15-37); BICARBONATE 23.1 MEQ/L (21.0-32.0); BLOOD UREA NITROGEN 6 MG/DL (7-18); CALCIUM 8.2 MG/DL (8.5-10.1); CHLORIDE 106 MEQ/L (98-107); CREATININE 0.61 MG/DL (0.50-1.00); GLOMERULAR FILTRATION RATE 128 ML/MIN (>89); GLUCOSE,RANDOM 172 MG/DL (74-106); SODIUM (NA) 138 MEQ/L (136-145); TOTAL BILIRUBIN ADULT 0.3 MG/DL (0.2-1.0); TOTAL PROTEIN 7.7 GM/DL (6.4-8.2)
[2017-06-21] MEDS: LOSARTAN 50 MG TAB PO SCH ×2 (07:52→20:34)
[2017-06-21] MEDS: DILTIAZEM-CD 240 MG CAP ER PO SCH (07:52)
[2017-06-21] MEDS: cloNIDine HCL 0.2 MG TAB PO SCH ×2 (07:52→20:34)
[2017-06-21] MEDS: RESP: ALBUTEROL 2.5 MG/IPRATROPIUM 0.5 MG NEB (SCH) NEB ×4 (07:58→21:13)
--- NOTE | 2017-06-21 09:24 | EKG ---
Date Performed: 06/20/2017 Time Performed: 10:36:00 PTAGE: 46 years EKG: SINUS TACHYCARDIA NONSPECIFIC T-WAVE ABNORMALITY ABNORMAL RHYTHM ECG PREVIOUS TRACING : 05/02/2010 09.16 Since prior tracing, sinus rate is faster. Nonspecific gilliland ges are more prominent. DOCTOR: Mateo Spring Interpretating Date/Time 06/21/2017 09:20:42
[2017-06-21] MEDS: AZITHROMYCIN 250 MG TAB PO SCH (09:56)
[2017-06-21] MEDS: SODIUM CHLORIDE 0.9% FLUSH 10 ML FLUSH IV FLUSH SCH ×2 (09:57→20:34)
[2017-06-21] MEDS: INSULIN ASPART SUPPLEMENTAL SCALE SQ SCH ×4 (09:57→21:57)
[2017-06-21] MEDS: cloNIDine HCL 0.1 MG TAB PO PRN ×2 (11:07→21:57)
[2017-06-21] MEDS: ALPRAZolam 0.5 MG TAB PO PRN ×2 (11:10→21:57)
--- NOTE | 2017-06-21 12:36 | HHI.IDPN ---
Note Infectious Disease Note Patient describes rib cage pain on coughing. Coughing up phlem. Had temp of 101 last night. Denies chills. (+) SOB. PAST MEDICAL HISTORY Hypertension, type 2 diabetes mellitus. Hidradenitis. History of TIA, gastroesophageal reflux disease, cholecystectomy. History of connective tissue disease, unknown type. ALLERGIES AMOXICILLIN, CLAVULANIC ACID, CLINDAMYCIN, FLUCONAZOLE, LEVAQUIN, OXYCODONE, GADODIAMIDE, GADOBENIC, DIATRIZOATE MEGLUMINE, IODIXANOL, IOHEXOL, IRON. Current Medications Medications (Trade) Dose Ordered Sig/Misa Route PRN Reason Start Time Stop Time Status Last Admin Dose Admin Sodium Chloride (NS Flush) 2 ml UNSCH PRN IV FLUSH FLUSH AFTER USING IV ACCESS 06/20/17 14:15 Sodium Chloride (NS Flush) 2 ml BID IV FLUSH 06/20/17 14:15 06/21/17 09:57 Alprazolam (Xanax) 0.5 mg BID PRN PO ANXIETY 06/20/17 14:15 06/21/17 11:10 Clonidine (Catapres) 0.2 mg BID PO 06/20/17 21:00 06/21/17 07:52 Diltiazem HCl (Cardizem Cd) 240 mg DAILY PO 06/21/17 09:00 06/21/17 07:52 Hydroxyzine HCl (Atarax) 50 mg QID PRN PO ITCHING 06/20/17 14:15 Losartan Potassium (Cozaar) 50 mg BID PO 06/20/17 21:00 06/21/17 07:52 Dextrose (D50w (Vial) Inj) 50 ml UNSCH PRN IV PUSH HYPOGLYCEMIA-SEE COMMENTS 06/20/17 15:30 Glucagon (Glucagon Inj) 1 mg UNSCH PRN OTHER HYPOGLYCEMIA-SEE COMMENTS 06/20/17 15:30 Insulin Aspart (NovoLOG SUPPLEMENTAL SCALE) 1 ACHS SLIDING SCALE SQ 06/20/17 17:00 06/21/17 09:57 Azithromycin (Zithromax) 500 mg DAILY PO 06/20/17 18:00 06/21/17 09:56 Albuterol/ Ipratropium (Duoneb Neb) 1 ampule QID NEB NEB 06/20/17 20:00 06/21/17 12:09 Clonidine (Catapres) 0.1 mg Q4H PRN PO SBP > 160 06/21/17 11:00 06/21/17 11:07 PHYSICAL EXAMINATION GENERAL: The patient is in no acute distress. HEENT: Head is atraumatic. Extraocular movements grossly intact, pupils reactive to light. No icterus. Oropharynx moist mucosa without lesions. No thrush. NECK: Supple without adenopathy. LUNGS: Rhonchi at the left base. HEART: Regular S1-S2. ABDOMEN: Bowel sounds present, soft, nontender. EXTREMITIES: No clubbing or cyanosis or edema. The patient has chronic dry skin at the tibias and a tiny ulceration at the right lateral tibia. SKIN: No diffuse rash. NEUROLOGIC: No gross focal findings. PSYCHIATRIC: The patient calm and cooperative. IMPRESSION 1. Acute bronchitis. 2. Lactic acidosis. Probably not sepsis related. 3. Fever. RECOMMENDATIONS 1. Obtain sputum culture. 2. Continue PO azithromycin. 3. Follow blood culture. 4. Repeat CXR. 5. Follow clinical status. Benjamin Valera MD Jun 21, 2017 12:36
--- NOTE | 2017-06-21 13:29 | RADRPT ---
EXAM DATE/TIME: 06/21/2017 13:10 [facility] COMPARISON: CHEST SINGLE AP, June 20, 2017, 11:09. INDICATIONS : Shortness of breath. MEDICAL HISTORY : Hypertension. Diabetes mellitus type II. SURGICAL HISTORY : None. ENCOUNTER: Subsequent ACUITY: 2 days PAIN SCORE: 0/10 LOCATION: Bilateral chest FINDINGS: The lungs are clear. The heart is minimally enlarged. The pulmonary vascularity is normal. There is n o evidence for infiltrate or failure. The portion of the bony skeleton visualized is unremarkable. CONCLUSION: Compensated cardiomegaly otherwise negative Zeferino Monsivais MD FACR on June 21, 2017 at 13:26 Board Certified Radiologist. This report was verified electronically.
--- NOTE | 2017-06-21 14:12 | MH ---
cc: CHICO GRAY MD DATE OF ADMISSION: 06/20/2017 CHIEF COMPLAINT Shortness of breath, cough, wheezing, fatigue and tired. HISTORY OF PRESENT ILLNESS This is a 46-year-old -[place] female with a past medical history that is significant for multiple things including arthritis, asthma, anxiety, depression, hypertension, history of TIA, diabetes mellitus, gastroesophageal reflux disease, headache, sickle cell trait, sleep apnea, uses C-PAP at home, history of hidradenitis with lymph node dissection history of , cholecystectomy. She came to my office and had a shortness of breath and severe respiratory distress. I will check the. Ligate the patient breathing treatment and sent to the [facility] emergency room. The patient was seen over there and got admitted and she was sick for three to four days before and her blood pressure was extremely high and her blood sugar was also high. Systolic blood pressure was above 200 and her blood sugar was checked in the office was 455. She has a temperature of 99.5. She also had tachypnea. She was admitted for possible diagnosis of pneumonia and hyperglycemia. Infectious disease and pulmonary consulted on this patient. Other than that nothing significant PAST MEDICAL HISTORY As dictated above. PAST SURGICAL HISTORY: As dictated above. SOCIAL HISTORY The patient does not smoke, does not abuse drugs. Lives at home. ALLERGIES DIATRIZOATE IODIXANOL IOHEXOL AMOXICILLIN GADOTERIDOL CLAVULANIC ACID CLINDAMYCIN IRON MEGLUMINE LEVOFLOXACIN FLUCONAZOLE OXYCODONE GADOBENIC ACID GADODIAMIDE ROXICODONE MEDICATIONS Include 1. Glipizide 5 mg twice a day. 2. Lasix 80 mg daily 3. Plaquenil 200 mg twice a day. 4. Hydroxyzine 50 mg p.r.n. leg edema. 5. Meloxicam 7.5 mg p.o. daily. 6. Zantac 300 mg p.o. daily. 7. Levemir 200 units subcutaneous twice a day. 8. Humalog/ Pro 16 units twice a day. 9. Clonidine 0.2 mg twice a day 10. Singulair 10 mg p.o. daily. 11. Losartan 50 mg twice a day. 12. Xanax 0.5 mg twice a day. 13. Reglan 5 mg p.o. t.i.d. 14. Nebulization with albuterol q six hours as needed. REVIEW OF SYSTEMS Positive for cough, congestion, shortness of breath or leg swelling, tachypnea, fatigue and tired all other review of systems are negative. PHYSICAL EXAMINATION IN GENERAL: This is a 46-year female sitting on the bed not in acute distress. VITAL SIGNS: Temperature 98.6, heart rate 94, respiration 19, blood pressure 187/92, O2 saturation 98% at room air. HEAD, EYES, EARS, NOSE, AND THROAT: Normocephalic, atraumatic. EOMI. Oral mucosa moist. NECK: Supple. No visible thyromegaly or neck mass. Trachea central. CARDIOVASCULAR SYSTEM: Regular rate and rhythm. LUNGS: Respirations bilateral wheezing, decreased air entry bilaterally. ABDOMEN: Soft, nontender. Bowel sounds audible. EXTREMITIES: No cyanosis or clubbing. Fulguration of all extremities. NEUROLOGIC: Awake, alert, oriented x4, No focal deficits. SKIN: Warm and dry. PSYCHIATRIC: The patient is cooperative mood, affect is normal. LABORATORY DATA Include CBC showed WBC count was 13.3 now it is 10.4, hemoglobin was 9.3 now it is 8.5, hematocrit was 29.3 now it is 26.4, platelet count is 435 normal. ABGs was done showed pH of 7.42 with pCO2 was 35 with pO2 31, O2 saturation 54. BMP totally unremarkable except for potassium was low 3.02 and today is 3.3. Glucose was 289 now it is 172, lactic acid level was 4.1 now it is 1.3, alkaline phosphatase high at 121, total protein normal 7.7, albumin low 2.7 with oximeter rate 0.12. Urine examination showed trace of ketones, glucose 1,000. 30 of protein, blood cultures x 2 done negative so far. Chest x-ray done shows no acute intrathoracic disease, compensated cardiomegaly. EKG was done and shows sinus tachycardia with rate of 101, nonspecific T-wave abnormality. ASSESSMENT/PLAN 1. This patient is a 46-year female who came to the ER diagnosed with shortness of breath, most likely secondary to asthma exacerbation, chronic bronchitis and COPD exacerbation. The patient is on DuoNeb nebulization oxygen. Lactic acid level was high, now it is normal. Possible sepsis. 2. Pulmonary is seeing the patient. Will continue Symbicort and Solu-Medrol. 3. Further recommendation per pulmonary and also C-PAP at night time. 4. Sepsis on admission, possible sepsis on admission, infectious disease is seeing the patient, Dr. Alexander. 5. While obtaining a sputum culture. The patient is on Zithromax also blood cultures done negative so far. Sputum culture done. Diabetes mellitus with hyperglycemia on insulin sliding scale and started on home insulin we will monitor blood sugar closely. History of COPD. Continue home medication. 6. History of sickle cell trait 7. History of hypertension. Continue home medications, clonidine mg p.o. q. 4 hours p.r.n. if blood pressure above 160/90. 8. Obesity. 9. DVT prophylaxis. Lovenox 40 mg daily. 10. GI prophylaxis Protonix 40 mg p.o. daily. 11. Hypokalemia will replace potassium and check magnesium level too. 12. Lactic acidosis. Chico Gray MD EA/nelson /1:25 PM /1:42 PM
--- NOTE | 2017-06-21 18:20 | HHI.PR ---
Subjective Remarks Feels better. No fever. ON Zithromax. No chest pain.Sat 96 on RA. Objective Vital Signs Date Time Temp Pulse Resp B/P (MAP) Pulse Ox O2 Delivery O2 Flow Rate FiO2 06/21/17 12:06 98.4 95 19 149/90 (109) 98 06/21/17 08:15 92 06/21/17 08:06 98.6 94 19 187/92 (123) 98 06/21/17 08:01 98 21 06/21/17 04:58 98.3 90 18 186/94 (124) 96 06/20/17 23:55 99.6 102 18 190/91 (124) 95 06/20/17 21:08 101.5 111 18 210/92 (131) 98 06/20/17 20:35 95 21 06/20/17 20:00 104 I/O 06/20/17 06/20/17 06/20/17 06/21/17 06/21/17 06/21/17 07:00 15:00 23:00 07:00 15:00 23:00 Intake Total 600 ml 600 ml Balance 600 ml 600 ml Intake Oral 600 ml 600 ml # Voids 2 # Bowel Movements 0 Result Diagram: 06/21/1730 06/21/1730 Objective Remarks GENERAL: This is a middle-aged, very obese lady who is alert, anxious and in no acute distress. HEENT: Head normocephalic. Pupils are reactive and equal. Tongue moist. Throat was clear. Nasal mucosa is clear. NECK: Supple. No venous distension. Trachea midline. CHEST: Decreased breath sounds at the bases with occasional wheezes anteriorly. No crackles. HEART: The heart sounds are regular S1 and S2 with no murmur. No S3. ABDOMEN: Soft, nontender. No organomegaly. Bowel sounds are active. EXTREMITIES: Mild varicosities and decreased peripheral pulses. 1+ reflexes with no gross motor deficits. SKIN: Skin was dry and scaly. No definite lesions noted. Assessment and Plan Assessment and Plan IMPRESSION 1. Obstructive sleep apnea syndrome. 2. Asthma and chronic bronchitis. 3. Hypertension. 4. Diabetes mellitus. 5. Sickle cell trait. 6. Obesity. Plan : 1. Cont Zithromax PO. 2. Nebs qid , duoneb. 3. Symbicort 160/4.5 mcg , 2puffs bid 4. CBC,BMP. 5. CPAP mask at HS . 6. Blood sugar control. 7. Home if stable in am. Raj Driver MD Jun 21, 2017 18:20
[2017-06-21] MEDS: guaiFENesin/CODEINE SYRUP 200 MG/20 MG/10 ML CUP PO PRN (20:34)
[2017-06-22] VITALS (10 sets, daily range): BP systolic 149–176; BP diastolic 73–83; PULSE 74–91; RESP 17–20; TEMP 97.8–98.5; O2SAT 97–99
[2017-06-22] MEDS: guaiFENesin/CODEINE SYRUP 200 MG/20 MG/10 ML CUP PO PRN ×3 (07:16→20:02)
[2017-06-22] MEDS: RESP: ALBUTEROL 2.5 MG/IPRATROPIUM 0.5 MG NEB (SCH) NEB ×4 (07:57→20:31)
[2017-06-22] MEDS: INSULIN ASPART SUPPLEMENTAL SCALE SQ SCH ×4 (08:00→20:59)
[2017-06-22] MEDS: SODIUM CHLORIDE 0.9% FLUSH 10 ML FLUSH IV FLUSH SCH ×2 (09:00→20:01)
[2017-06-22] MEDS: cloNIDine HCL 0.2 MG TAB PO SCH ×2 (09:41→20:01)
[2017-06-22] MEDS: BENZONATATE 100 MG CAP PO SCH ×3 (09:41→17:19)
[2017-06-22] MEDS: AZITHROMYCIN 250 MG TAB PO SCH (09:41)
[2017-06-22] MEDS: LOSARTAN 50 MG TAB PO SCH ×2 (09:42→20:01)
[2017-06-22] MEDS: DILTIAZEM-CD 240 MG CAP ER PO SCH (09:42)
--- NOTE | 2017-06-22 11:25 | HHI.PR ---
Subjective History of Present Illness Patient feel better cough/ SOB better. d/w patient Pulmonary and ID input noted. Review of Systems Constitutional Constitutional: Fatigue Constitutional Remarks morbid obesity. Pulmonary Respiratory: Shortness of Breath, Wheezing Vitals/Results Vital Signs Vital Signs Date Time Temp Pulse Resp B/P (MAP) Pulse Ox O2 Delivery O2 Flow Rate FiO2 06/22/17 08:00 98.0 91 17 166/82 (110) 98 06/22/17 07:59 98 21 06/22/17 04:30 98.0 74 20 150/73 (98) 99 06/22/17 00:03 Room Air 06/22/17 00:03 98.5 81 20 149/76 (100) 99 06/21/17 21:43 98.0 95 20 186/98 (127) 97 06/21/17 21:43 Room Air 06/21/17 21:14 97 21 06/21/17 20:44 86 06/21/17 16:06 99.6 88 19 160/80 (106) 96 06/21/17 12:06 98.4 95 19 149/90 (109) 98 CBC/BMP: 06/21/17 0630 06/21/17 0630 Microbiology Microbiology 06/21/17 Gram Stain - Final, Resulted 06/21/17 Sputum Culture, Resulted Pending Physical Exam General General Appearance: Well Developed, Well Nourished, No Acute Distress, Comfortable Eyes Eye Exam: Pupils Equal, Pupils Reactive, Sclera White, Extraocular Movement Intact Throat Throat Exam: Oral Mucosa [place] & Moist, Oral Pharynx Normal Neck Neck Exam: Neck Supple, Trachea Midline Pulmonary Resp Exam: Diminished Breath Sounds Resp Remarks bilateral wheezing. Cardiology CV Exam: Regular, Normal Sinus Rhythm Gastrointestinal/Abdomen GI Exam: Soft, Non-Tender, Bowel Sounds Present Musculoskeletal MS Exam: Joints Intact, Normal Gait Integumentary Skin Exam: Warm, Dry Neurologic Neuro Exam: Alert, Awake, Oriented, Speech Clear, Moving All Extremities, No Focal Deficits Psychiatric Psych Exam: Appropriate Responses PUD Prophylasis PUD Prophylaxis: Protonix Assessment/Plan Assessment/Plan ASSESSMENT/PLAN 1. This patient is a 46-year female who came to the ER diagnosed with shortness of breath, most likely secondary to asthma exacerbation, chronic bronchitis and COPD exacerbation. The patient is on DuoNeb nebulization oxygen. Lactic acid level was high, now it is normal. Possible sepsis. Pulmonary is seeing the patient. Will continue Symbicort and Solu-Medrol. Further recommendation per pulmonary and also C-PAP at night time. 2. Sepsis on admission, possible sepsis on admission, infectious disease is seeing the patient, Dr. Alexander. 3. While obtaining a sputum culture. The patient is on Zithromax also blood cultures done negative so far. Sputum culture done. Diabetes mellitus with hyperglycemia on insulin sliding scale and started on home insulin we will monitor blood sugar closely. History of COPD. Continue home medication. 4. History of sickle cell trait 5. History of hypertension. Continue home medications, clonidine mg p.o. q. 4 hours p.r.n. if blood pressure above 160/90. 6. Obesity. 7. DVT prophylaxis. Lovenox 40 mg daily. 8. GI prophylaxis Protonix 40 mg p.o. daily. 9. Hypokalemia will replace potassium and check magnesium level too. 10. Lactic acidosis. better DVT and GI Prophylaxis Discussed Condition with: Patient Chico Singh MD Jun 22, 2017 11:25
--- NOTE | 2017-06-22 14:16 | HHI.PR ---
Subjective Remarks Much better. No fever. ON PO Zithromax. No chest pain.Sat 96 on RA. Has some leg edema. Objective Vital Signs Date Time Temp Pulse Resp B/P (MAP) Pulse Ox O2 Delivery O2 Flow Rate FiO2 06/22/17 12:00 98.3 85 20 165/80 (108) 99 06/22/17 08:05 80 06/22/17 08:00 98.0 91 17 166/82 (110) 98 06/22/17 07:59 98 21 06/22/17 07:00 Room Air 06/22/17 04:30 98.0 74 20 150/73 (98) 99 06/22/17 00:03 Room Air 06/22/17 00:03 98.5 81 20 149/76 (100) 99 06/21/17 21:43 98.0 95 20 186/98 (127) 97 06/21/17 21:43 Room Air 06/21/17 21:14 97 21 06/21/17 20:44 86 06/21/17 16:06 99.6 88 19 160/80 (106) 96 I/O 06/21/17 06/21/17 06/21/17 06/22/17 06/22/17 06/22/17 07:00 15:00 23:00 07:00 15:00 23:00 Intake Total 600 ml 600 ml 520 ml 840 ml Output Total 1250 ml Balance 600 ml 600 ml 520 ml -410 ml Intake Oral 600 ml 600 ml 520 ml 840 ml Output Urine Total 1250 ml # Voids 2 5 # Bowel Movements 0 1 0 Result Diagram: 06/21/1730 06/21/17 0630 Objective Remarks GENERAL: This is a middle-aged, very obese lady who is alert, and in no acute distress. HEENT: Head normocephalic. Pupils are reactive and equal. Tongue moist. Throat was clear. Nasal mucosa is clear. NECK: Supple. No venous distension. Trachea midline. CHEST: Decreased breath sounds at the bases with occasional wheezes anteriorly. No crackles. HEART: The heart sounds are regular S1 and S2 with no murmur. No S3. ABDOMEN: Soft, nontender. No organomegaly. Bowel sounds are active. EXTREMITIES: Mild varicosities and decreased peripheral pulses. Edema 1 + and has a dressing over left leg.1+ reflexes with no gross motor deficits. SKIN: Skin was dry and scaly. No definite lesions noted. Assessment and Plan Assessment and Plan IMPRESSION 1. Obstructive sleep apnea syndrome. 2. Asthma and chronic bronchitis. 3. Hypertension. 4. Diabetes mellitus. 5. Sickle cell trait. 6. Obesity. Plan : 1. Cont Zithromax PO. 2. Nebs qid , duoneb. 3. Cont Symbicort 160/4.5 mcg , 2puffs bid 4. Home anytime 5. Cont CPAP mask at . Raj Driver MD Jun 22, 2017 14:16
[2017-06-22] MEDS: cloNIDine HCL 0.1 MG TAB PO PRN (19:03)
[2017-06-22] MEDS: ALPRAZolam 0.5 MG TAB PO PRN (20:59)
[2017-06-23] VITALS: BP 131/81; PULSE 82; RESP 17; TEMP 98.3; O2SAT 98
[2017-06-23 04:00] VITALS: BP 172/106; PULSE 82; RESP 16; TEMP 98.3; O2SAT 98
[2017-06-23] MEDS: cloNIDine HCL 0.1 MG TAB PO PRN (04:42)
[2017-06-23] MEDS: RESP: ALBUTEROL 2.5 MG/IPRATROPIUM 0.5 MG NEB (SCH) NEB ×2 (07:39→11:44)
[2017-06-23 07:40] VITALS: O2SAT 93
[2017-06-23 08:00] VITALS: BP 178/88; PULSE 82; PULSE 84; RESP 18; TEMP 98.2; O2SAT 99
[2017-06-23] MEDS: INSULIN ASPART SUPPLEMENTAL SCALE SQ SCH ×2 (08:00→12:00)
[2017-06-23] MEDS: AZITHROMYCIN 250 MG TAB PO SCH (08:37)
[2017-06-23] MEDS: cloNIDine HCL 0.2 MG TAB PO SCH (08:37)
[2017-06-23] MEDS: BENZONATATE 100 MG CAP PO SCH ×2 (08:37→12:51)
[2017-06-23] MEDS: guaiFENesin/CODEINE SYRUP 200 MG/20 MG/10 ML CUP PO PRN (08:37)
[2017-06-23] MEDS: LOSARTAN 50 MG TAB PO SCH (08:37)
[2017-06-23] MEDS: DILTIAZEM-CD 240 MG CAP ER PO SCH (08:37)
[2017-06-23] MEDS: SODIUM CHLORIDE 0.9% FLUSH 10 ML FLUSH IV FLUSH SCH (08:40)
[2017-06-23 08:59] LABS: BLOOD UREA NITROGEN 9 MG/DL (7-18); CALCIUM 8.6 MG/DL (8.5-10.1); CHLORIDE 105 MEQ/L (98-107); SODIUM (NA) 134 MEQ/L (136-145)
[2017-06-23 09:07] LABS: AUTOMATED NEUTROPHIL # 6.9 TH/MM3 (1.8-7.7); BASOPHIL % 0.2 % (0.0-2.0); EOSINOPHIL # 0.2 TH/MM3 (0-0.4); EOSINOPHIL % 2.5 % (0.0-4.0); HEMATOCRIT 29.1 % (35.0-46.0); HEMOGLOBIN 9.1 GM/DL (11.6-15.3); LYMPH % 21.2 % (9.0-44.0); LYMPHOCYTE # 2.1 TH/MM3 (1.0-4.8); MEAN CELL VOLUME 61.8 FL (80.0-100.0); MEAN CORPUSCULAR HEMOGLOBIN 19.2 PG (27.0-34.0); MEAN CORPUSCULAR HGB CONC 31.1 % (32.0-36.0); MEAN PLATELET VOLUME 8.2 FL (7.0-11.0); MONO % 5.1 % (0.0-8.0); MONOCYTE # 0.5 TH/MM3 (0-0.9); PLATELET COUNT 316 TH/MM3 (150-450); RED BLOOD COUNT 4.71 MIL/MM3 (4.00-5.30); RED CELL DISTRIBUTION WIDTH 19.2 % (11.6-17.2); WHITE BLOOD COUNT 9.7 TH/MM3 (4.0-11.0)
[2017-06-23 09:26] LABS: ALBUMIN 2.7 GM/DL (3.4-5.0); ALKALINE PHOSPHATASE 112 U/L (45-117); ALT (GPT) 15 U/L (10-53); AST (GOT) 17 U/L (15-37); BICARBONATE 21.2 MEQ/L (21.0-32.0); CREATININE 0.58 MG/DL (0.50-1.00); GLOMERULAR FILTRATION RATE 136 ML/MIN (>89); GLUCOSE,RANDOM 222 MG/DL (74-106); TOTAL BILIRUBIN ADULT 0.2 MG/DL (0.2-1.0); TOTAL PROTEIN 7.8 GM/DL (6.4-8.2)
[2017-06-23] MEDS ORDERED: AZIT250T3 PO (11:30)
[2017-06-23] MEDS ORDERED: BENZ100 PO (11:32)
--- NOTE | 2017-06-23 11:37 | HHI.PR ---
Subjective History of Present Illness Patient feel better cough/ SOB better. d/w patient Pulmonary and ID input noted. ok to discharge home today. Review of Systems Constitutional Constitutional: Fatigue Constitutional Remarks morbid obesity. Pulmonary Respiratory: Shortness of Breath, Wheezing Vitals/Results Vital Signs Vital Signs Date Time Temp Pulse Resp B/P (MAP) Pulse Ox O2 Delivery O2 Flow Rate FiO2 06/23/17 08:00 98.2 84 18 178/88 (118) 99 06/23/17 08:00 82 06/23/17 07:40 93 21 06/23/17 04:00 98.3 82 16 172/106 (128) 98 06/23/17 04:00 Room Air 06/23/17 00:00 98.3 82 17 131/81 (98) 98 06/23/17 00:00 Room Air 06/22/17 20:32 99 21 06/22/17 20:06 81 06/22/17 20:00 97.8 91 18 176/83 (114) 97 06/22/17 20:00 Room Air 06/22/17 18:33 98.3 89 20 170/74 (106) 99 06/22/17 12:00 98.3 85 20 165/80 (108) 99 CBC/BMP: 06/23/17 0814 06/23/17 0814 Lab Results Laboratory Tests Test 06/23/17 08:14 White Blood Count 9.7 TH/MM3 Red Blood Count 4.71 MIL/MM3 Hemoglobin 9.1 GM/DL Hematocrit 29.1 % Mean Corpuscular Volume 61.8 FL Mean Corpuscular Hemoglobin 19.2 PG Mean Corpuscular Hemoglobin Concent 31.1 % Red Cell Distribution Width 19.2 % Platelet Count 316 TH/MM3 Mean Platelet Volume 8.2 FL Neutrophils (%) (Auto) 71.0 % Lymphocytes (%) (Auto) 21.2 % Monocytes (%) (Auto) 5.1 % Eosinophils (%) (Auto) 2.5 % Basophils (%) (Auto) 0.2 % Neutrophils # (Auto) 6.9 TH/MM3 Lymphocytes # (Auto) 2.1 TH/MM3 Monocytes # (Auto) 0.5 TH/MM3 Eosinophils # (Auto) 0.2 TH/MM3 Basophils # (Auto) 0.0 TH/MM3 CBC Comment AUTO DIFF Hematology Comments Blood Urea Nitrogen 9 MG/DL Creatinine 0.58 MG/DL Random Glucose 222 MG/DL Total Protein 7.8 GM/DL Albumin 2.7 GM/DL Calcium Level 8.6 MG/DL Alkaline Phosphatase 112 U/L Aspartate Amino Transf (AST/SGOT) 17 U/L Alanine Aminotransferase (ALT/SGPT) 15 U/L Total Bilirubin 0.2 MG/DL Sodium Level 134 MEQ/L Potassium Level 3.5 MEQ/L Chloride Level 105 MEQ/L Carbon Dioxide Level 21.2 MEQ/L Anion Gap 8 MEQ/L Estimat Glomerular Filtration Rate 136 ML/MIN Physical Exam General General Appearance: Well Developed, Well Nourished, No Acute Distress, Comfortable Eyes Eye Exam: Pupils Equal, Pupils Reactive, Sclera White, Extraocular Movement Intact Throat Throat Exam: Oral Mucosa [place] & Moist, Oral Pharynx Normal Neck Neck Exam: Neck Supple, Trachea Midline Pulmonary Resp Exam: Diminished Breath Sounds Resp Remarks bilateral wheezing. Cardiology CV Exam: Regular, Normal Sinus Rhythm Gastrointestinal/Abdomen GI Exam: Soft, Non-Tender, Bowel Sounds Present Musculoskeletal MS Exam: Joints Intact, Normal Gait Integumentary Skin Exam: Warm, Dry Neurologic Neuro Exam: Alert, Awake, Oriented, Speech Clear, Moving All Extremities, No Focal Deficits Psychiatric Psych Exam: Appropriate Responses PUD Prophylasis PUD Prophylaxis: Protonix Assessment/Plan Assessment/Plan ASSESSMENT/PLAN 1. This patient is a 46-year female who came to the ER diagnosed with shortness of breath, most likely secondary to asthma exacerbation, chronic bronchitis and COPD exacerbation. The patient is on DuoNeb nebulization oxygen. Lactic acid level was high, now it is normal. Possible sepsis. Pulmonary is seeing the patient. Will continue Symbicort and Solu-Medrol. Further recommendation per pulmonary and also C-PAP at night time. 2. Sepsis on admission, possible sepsis on admission, infectious disease is seeing the patient, Dr. Alexander. 3. While obtaining a sputum culture. The patient is on Zithromax also blood cultures done negative so far. Sputum culture done. Diabetes mellitus with hyperglycemia on insulin sliding scale and started on home insulin we will monitor blood sugar closely. History of COPD. Continue home medication. 4. History of sickle cell trait 5. History of hypertension. Continue home medications, clonidine mg p.o. q. 4 hours p.r.n. if blood pressure above 160/90. 6. Obesity. 7. DVT prophylaxis. Lovenox 40 mg daily. 8. GI prophylaxis Protonix 40 mg p.o. daily. 9. Hypokalemia will replace potassium and check magnesium level too. 10. Lactic acidosis. better DVT and GI Prophylaxis ok to discharge home today, f/u with PCP/ Pulmonary 1 week. Discussed Condition with: Patient Chico Singh MD Jun 23, 2017 11:37
[2017-06-23 12:00] VITALS: BP 121/63; PULSE 58; RESP 18; TEMP 98.2; O2SAT 99
== END 2017-06-23 13:51 | disposition home or self-care (01) | DRG 872 ==
LOC: NEPE 10:14 → NEDA 13:46 → N04A 16:30
PROVIDERS: ADMIT Family Medicine; ATTEND Family Medicine
DX: A41.9 Sepsis, unspecified organism (principal); E87.2 Acidosis; J44.0 Chronic obstructive pulmonary disease with (acute) lower respiratory infection; J45.901 Unspecified asthma with (acute) exacerbation; E11.65 Type 2 diabetes mellitus with hyperglycemia; Z68.41 Body mass index [BMI] 40.0-44.9, adult; J44.1 Chronic obstructive pulmonary disease with (acute) exacerbation; J20.9 Acute bronchitis, unspecified; R06.03 Acute respiratory distress; I10 Essential (primary) hypertension; R09.02 Hypoxemia; G47.33 Obstructive sleep apnea (adult) (pediatric); E66.01 Morbid (severe) obesity due to excess calories; I25.10 Atherosclerotic heart disease of native coronary artery without angina pectoris; K21.9 Gastro-esophageal reflux disease without esophagitis; E87.6 Hypokalemia; M19.90 Unspecified osteoarthritis, unspecified site; F32.9 Major depressive disorder, single episode, unspecified; F41.9 Anxiety disorder, unspecified; Z79.1 Long term (current) use of non-steroidal anti-inflammatories (NSAID); Z79.4 Long term (current) use of insulin; Z79.51 Long term (current) use of inhaled steroids; Z86.73 Personal history of transient ischemic attack (TIA), and cerebral infarction without residual deficits; Z88.1 Allergy status to other antibiotic agents; Z88.5 Allergy status to narcotic agent
CPT/HCPCS: 71010; 80053; 81001; 82010; 82805; 82948; 83605; 85025; 87040; 87070; 87205; 93005; 94640; 94664; 96361; 96365; J1815; J3370; J3480; J7030; J7050

== ENCOUNTER → 2017-11-07 | Outpatient (CLI) | payer MEDICARE, MEDICAID ==
[~2017-11-07] MED LIST changes: +ALBU0.08 NEB; +AZIT250T3 PO; +BENZ100 PO; -DILT-64 PO; +DILT240C44 PO; -MAGN1TAB14 PO; +MAGN400T3 PO; -MEDI; +MELO7.5T27 PO; -MELO7.5T4 PO; -[UNRECOGNIZED DRUG - CODE] PO
[2017-11-07 10:19] LABS: ALBUMIN 3.2 GM/DL (3.4-5.0); AST (GOT) 10 U/L (15-37); BICARBONATE 23.6 MEQ/L (21.0-32.0); BLOOD UREA NITROGEN 12 MG/DL (7-18); CALCIUM 8.8 MG/DL (8.5-10.1); CHLORIDE 103 MEQ/L (98-107); CREATININE 0.68 MG/DL (0.50-1.00); GLOMERULAR FILTRATION RATE 113 ML/MIN (>89); GLUCOSE,FASTING 173 MG/DL (74-99); SODIUM (NA) 138 MEQ/L (136-145)
[2017-11-07 10:20] LABS: ALT (GPT) 14 U/L (10-53); CHOLESTEROL 159 MG/DL (120-200)
[2017-11-07 10:22] LABS: ALKALINE PHOSPHATASE 122 U/L (45-117); CHOLESTEROL/ HDL RATIO 5.54 RATIO; HDL CHOLESTEROL 28.7 MG/DL (40.0-60.0); LDL CHOLESTEROL 95 MG/DL (0-99); TOTAL BILIRUBIN ADULT 0.3 MG/DL (0.2-1.0); TOTAL PROTEIN 8.5 GM/DL (6.4-8.2); TRIGLYCERIDES 176 MG/DL (42-150)
[2017-11-07 17:13] LABS: HEMOGLOBIN A1C 8.5 % (4.3-6.0)
== END ==
LOC: CLAB 09:02
PROVIDERS: ATTEND Family Medicine
DX: E11.9 Type 2 diabetes mellitus without complications (principal)
CPT/HCPCS: 36415; 80053; 80061; 83036